=== PATIENT | female | born 1935 | race African-American/Black ===

== ENCOUNTER 2021-09-23 11:15 | Outpatient (CLI) | payer MEDICARE, BC ==
[2021-09-24 12:04] LABS: SARS-CoV-2 PCR by NAA Not Detected (NotDetected)
== END 2021-09-23 11:16 | disposition home or self-care (01) ==
LOC: CSHLAB 11:15
PROVIDERS: ATTEND Internal Medicine Pulmonary Disease
DX: Z20.822 Contact with and (suspected) exposure to COVID-19 (principal)
CPT/HCPCS: U0003; U0005

== ENCOUNTER 2021-09-28 11:57 | Outpatient (CLI) | payer MEDICARE, BC | END 2021-09-28 11:58 | disposition home or self-care (01) | LOC: CSHCP 11:57 | PROVIDERS: ATTEND Internal Medicine Pulmonary Disease | DX: R91.8 Other nonspecific abnormal finding of lung field (principal) | CPT/HCPCS: 94060; 94726; 94729; 94760 ==